=== PATIENT | female | born 1950 | race Caucasian/White ===

== ENCOUNTER 2016-09-06 16:52 | Observation (INO) | payer OTHER ==
[~2016-09-06] VITALS: Ht 172.7 cm; Wt 56.7 kg
[2016-09-06 18:03] LABS: Basophils # (auto) 0 uL; Basophils % (auto) 0.5 % (0.0-2.0); Eosinophils # (auto) 0.1 uL; Eosinophils % (auto) 1.6 % (0.0-7.0); Hematocrit 35.1 % (36.0-46.0); Hemoglobin 11.6 g/dL (12.2-16.2); Lymphocytes # (auto) 2.4 uL; Lymphocytes % (auto) 41.8 % (10.0-50.0); Mean Corpuscular Hemoglobin 30.4 pg (28.0-32.0); Mean Corpuscular Hgb Conc. 33.1 g/dL (32.0-36.0); Mean Corpuscular Volume 91.8 fL (80.0-100.0); Mean Platelet Volume 8.4 fL (7.4-10.4); Monocytes # (auto) 0.5 uL; Monocytes % (auto) 8.3 % (0.0-12.0); Neutrophils # (auto) 2.8 uL; Neutrophils % (auto) 47.8 % (37.0-80.0); Platelet Count (auto) 237 10^3/uL (140-450); Red Cell Distribution Width 13.9 % (11.6-16.0); White Blood Cell 5.8 10^3/uL (4.4-10.8)
[2016-09-06 18:07] LABS: Albumin 3.6 g/dL (3.4-5.0); BUN/Creatinine Ratio 29.8; Bilirubin, Total 0.3 mg/dL (0.2-1.0); Calcium 9.2 mg/dL (8.5-10.1); Potassium 3.8 mmol/L (3.5-5.1); Total Protein 6.7 g/dL (6.4-8.2)
[2016-09-06] MEDS ORDERED: SODIUM CHLORIDE 0.9% 1,000 ML IVB ONE (18:56)
[2016-09-06] MEDS ORDERED: ONDANSETRON HCL 4 MG/2 ML VIAL IV ONE (19:00)
[2016-09-06 19:16] LABS: Magnesium 2.2 mg/dL (1.6-2.6)
[2016-09-06 19:19] LABS: Urine Bilirubin Negative (Negative); Urine Blood Negative /uL (Negative); Urine Color Yellow (Yellow); Urine Glucose Normal (Normal); Urine Ketone Negative (Negative); Urine Nitrite Negative (Negative); Urine RBC None Seen /hpf (0 - 4); Urine Squamous Epithelial Cell FEW /hpf (<5); Urine Urobilinogen Normal (Negative)
[2016-09-06 19:23] LABS: INR 1.02 (0.9-1.15)
[2016-09-06] MEDS ORDERED: KETOROLAC TROMETH 30 MG/ML 1ML VIAL IV ONE (20:30)
[2016-09-06] MEDS ORDERED: HYDROcodone-ACET 5/325MG TAB PO ONE (22:00)
[2016-09-06] MEDS ORDERED: IOHEXOL 350 MG/ML 100ML IJ ONE (22:43)
[2016-09-07 00:40] VITALS: BP 147/77
== END 2016-09-07 01:06 | disposition short-term general hospital (02) | DRG 392 ==
LOC: ER 16:57 → OVERFLOW 18:58 → ER 09-07 01:06
PROVIDERS: ADMIT Family Medicine; ATTEND Family Medicine
DX: R10.84 Generalized abdominal pain (principal); F41.9 Anxiety disorder, unspecified; R11.2 Nausea with vomiting, unspecified; Z82.49 Family history of ischemic heart disease and other diseases of the circulatory system; Z83.3 Family history of diabetes mellitus; R63.4 Abnormal weight loss; R91.1 Solitary pulmonary nodule
CPT/HCPCS: 36415; 71010; 71260; 74176; 80053; 81001; 82150; 83690; 83735; 85025; 85610; 85730; 93005; 96361; 96374; 96375; 99281; G0378; J1885; J2405; J7030; Q9967

== ENCOUNTER 2016-12-14 06:51 | Inpatient (IN) | payer OTHER ==
[~2016-12-14] VITALS: Ht 172.7 cm; Wt 63.5 kg
[2016-12-14] MEDS ORDERED: SODIUM CHLORIDE 0.9% 500 ML IV ONE (07:12)
[2016-12-14] MEDS ORDERED: ONDANSETRON HCL 4 MG/2 ML VIAL IV ONE (07:15)
[2016-12-14 08:17] LABS: Basophils # (auto) 0 uL; Basophils % (auto) 0.4 % (0.0-2.0); CONDITION Y; Eosinophils # (auto) 0.1 uL; Eosinophils % (auto) 1.9 % (0.0-7.0); Hematocrit 36.7 % (36.0-46.0); Hemoglobin 12.6 g/dL (12.2-16.2); Lymphocytes # (auto) 1.9 uL; Lymphocytes % (auto) 37.4 % (10.0-50.0); Mean Corpuscular Hemoglobin 32.7 pg (28.0-32.0); Mean Corpuscular Hgb Conc. 34.5 g/dL (32.0-36.0); Mean Corpuscular Volume 94.7 fL (80.0-100.0); Mean Platelet Volume 8.4 fL (7.4-10.4); Monocytes # (auto) 0.4 uL; Neutrophils # (auto) 2.7 uL; Neutrophils % (auto) 52.3 % (37.0-80.0); Platelet Count (auto) 203 10^3/uL (140-450); Red Cell Distribution Width 13.1 % (11.6-16.0); White Blood Cell 5.2 10^3/uL (4.4-10.8)
[2016-12-14 08:29] LABS: INR 0.97 (0.9-1.15); Partial Thromboplastin Time 24.3 sec (22.64-33.71); Prothrombin Time 10.6 sec (9.37-12.3)
[2016-12-14 08:34] LABS: Albumin 3.5 g/dL (3.4-5.0); Anion Gap 8 (5-15); Blood Urea Nitrogen 15 mg/dL (7-18); Calcium 9.1 mg/dL (8.5-10.1); Carbon Dioxide 28 mmol/L (21-32); Chloride 108 mmol/L (98-107); Glucose 109 mg/dL (74-106); Magnesium 2.2 mg/dL (1.6-2.6); Potassium 3.8 mmol/L (3.5-5.1); Sodium 144 mmol/L (136-145)
[2016-12-14 08:36] LABS: Aspartate Aminotransferase 28 U/L (15-37); BUN/Creatinine Ratio 21.4; GFR African American 108 mL/min; GFR Non-African American 89 mL/min
[2016-12-14 08:44] LABS: Alkaline Phosphatase 71 U/L (45-117); Bilirubin, Total 0.4 mg/dL (0.2-1.0)
[2016-12-14] MEDS ORDERED: LORazepam 0.5 MG TAB PO PRN (09:15)
[2016-12-14] MEDS ORDERED: LACTULOSE 20Gm/30ML SOLN PO PRN (09:15)
[2016-12-14] MEDS ORDERED: ACETAMINOPHEN 500 MG TAB PO PRN (09:15)
[2016-12-14] MEDS ORDERED: HYDROcodone-ACET 5/325MG TAB PO PRN (09:15)
[2016-12-14] MEDS ORDERED: TEMAZEPAM 15 MG CAP PO PRN (09:15)
[2016-12-14] MEDS ORDERED: PROMETHAZINE HCL 25 MG/ML 1ML IV ONE (09:15)
[2016-12-14] MEDS ORDERED: NITROGLYCERIN 0.4 MG SL TAB SL PRN (09:15)
[2016-12-14] MEDS ORDERED: DEXTROSE (50%) 50ML SYRG IV PRN (09:15)
[2016-12-14] MEDS ORDERED: HYDROmorphone HCL 2 MG/ML VL IV ONE (09:15)
[2016-12-14 09:42] LABS: Cholesterol 259 mg/dL (< 200); HDL Cholesterol 65 mg/dL (40-59); LDL Cholesterol 168 mg/dL (< 100); Triglycerides 80 mg/dL (< 150)
[2016-12-14] MEDS: SODIUM CHLORIDE 0.9% 1,000 ML IV SCH ×2 (09:46→22:07)
[2016-12-14] MEDS: ASPirin 81 mg TAB PO SCH (10:14)
[2016-12-14] MEDS: PANTOPRAZOLE 40 MG TAB PO SCH (10:14)
[2016-12-14] MEDS: ENOXAPARIN SOD 40 MG/0.4 ML SYRINGE SC SCH (10:14)
[2016-12-14 10:20] LABS: Temperature: 23.3 C (20.0-25.0)
[2016-12-14 11:00] LABS: Urine RBC None Seen /hpf (0 - 4)
[2016-12-14 11:35] LABS: Urine Bilirubin Negative (Negative); Urine Blood Negative /uL (Negative); Urine Color Colorless (Yellow); Urine Glucose Normal (Normal); Urine Hyaline Cast FEW /lpf (0 - 2); Urine Ketone Negative (Negative); Urine Nitrite Negative (Negative); Urine Urobilinogen Normal (Negative); Urine pH 7.5 (5.0-8.0)
[2016-12-14] MEDS: ACCU-CHEK COMFORT CURVE STRIP VI SCH ×2 (11:59→17:44)
[2016-12-14] MEDS: PROMETHAZINE HCL 25 MG/ML 1ML IV PRN ×3 (13:03→22:07)
[2016-12-14] MEDS: HYDROmorphone HCL 2 MG/ML VL IV PRN ×3 (13:04→22:08)
[2016-12-14] MEDS ORDERED: hydrALAZINE HCL 20 MG/ML VL IV PRN (19:00)
[2016-12-14 21:30] VITALS: BP 85/48
[2016-12-14 22:00] VITALS: BP_SYST 105; BP_SYST 85; BP_DIAS 48; BP_DIAS 68
[2016-12-14] MEDS ORDERED: ATORVASTATIN 20 MG TAB PO SCH (22:00)
[2016-12-14 22:37] VITALS: BP 144/70
[2016-12-15] MEDS: PROMETHAZINE HCL 25 MG/ML 1ML IV PRN ×3 (02:53→14:31)
[2016-12-15] MEDS: HYDROmorphone HCL 2 MG/ML VL IV PRN ×3 (02:53→14:30)
[2016-12-15 05:30] VITALS: BP 134/66
[2016-12-15] MEDS: ACCU-CHEK COMFORT CURVE STRIP VI SCH ×4 (05:47→17:36)
[2016-12-15 06:17] LABS: Basophils # (auto) 0 uL; Basophils % (auto) 0.5 % (0.0-2.0); CONDITION Y; Eosinophils # (auto) 0.1 uL; Eosinophils % (auto) 2.2 % (0.0-7.0); Hematocrit 34.8 % (36.0-46.0); Hemoglobin 11.8 g/dL (12.2-16.2); Lymphocytes # (auto) 1.8 uL; Lymphocytes % (auto) 28.1 % (10.0-50.0); Mean Corpuscular Hemoglobin 32.7 pg (28.0-32.0); Mean Corpuscular Hgb Conc. 33.9 g/dL (32.0-36.0); Mean Corpuscular Volume 96.4 fL (80.0-100.0); Mean Platelet Volume 8.8 fL (7.4-10.4); Monocytes # (auto) 0.5 uL; Monocytes % (auto) 7.1 % (0.0-12.0); Neutrophils % (auto) 62.1 % (37.0-80.0); Platelet Count (auto) 171 10^3/uL (140-450); Red Cell Distribution Width 12.8 % (11.6-16.0); White Blood Cell 6.4 10^3/uL (4.4-10.8)
[2016-12-15 06:48] LABS: Albumin 3.3 g/dL (3.4-5.0); Bilirubin, Total 0.6 mg/dL (0.2-1.0); Calcium 9.1 mg/dL (8.5-10.1); Potassium 3.6 mmol/L (3.5-5.1); Total Protein 6.5 g/dL (6.4-8.2)
[2016-12-15 09:00] VITALS: BP 146/46
[2016-12-15] MEDS: ENOXAPARIN SOD 40 MG/0.4 ML SYRINGE SC SCH (10:00)
[2016-12-15] MEDS: ASPirin 81 mg TAB PO SCH (10:40)
[2016-12-15] MEDS: PANTOPRAZOLE 40 MG TAB PO SCH (10:40)
[2016-12-15] MEDS: SODIUM CHLORIDE 0.9% 1,000 ML IV SCH (10:41)
[2016-12-15 13:00] VITALS: BP 126/56
[2016-12-15] MEDS ORDERED: IOHEXOL 350 MG/ML 100ML IJ ONE (15:30)
[2016-12-15 17:00] VITALS: BP 125/62
[2016-12-15 18:02] VITALS: BP 125/62
== END 2016-12-15 19:20 | disposition home or self-care (01) | DRG 605 ==
LOC: EDBD 06:51 → ER 06:51 → TELE 06:52 → TELE-E-ADS 14:35 → TELE-WESTW 17:22
PROVIDERS: ADMIT Internal Medicine; ATTEND Internal Medicine
DX: S80.01XA Contusion of right knee, initial encounter (principal); S09.90XA Unspecified injury of head, initial encounter; R55 Syncope and collapse; W19.XXXA Unspecified fall, initial encounter; F41.9 Anxiety disorder, unspecified; J06.9 Acute upper respiratory infection, unspecified; M54.5 Low back pain; E78.5 Hyperlipidemia, unspecified; M19.90 Unspecified osteoarthritis, unspecified site; Y93.89 Activity, other specified; Y92.89 Other specified places as the place of occurrence of the external cause; Z82.49 Family history of ischemic heart disease and other diseases of the circulatory system; Z83.3 Family history of diabetes mellitus; Z90.49 Acquired absence of other specified parts of digestive tract; Z90.710 Acquired absence of both cervix and uterus; Z88.8 Allergy status to other drugs, medicaments and biological substances; Z88.5 Allergy status to narcotic agent; Z88.0 Allergy status to penicillin
CPT/HCPCS: 36415; 70450; 71010; 71275; 72100; 73562; 73700; 80053; 80061; 80307; 81001; 82550; 82607; 82746; 82962; 83036; 83735; 84443; 84484; 85025; 85379; 85610; 85652; 85730; 93005; 93306; 93886; 94761; 96361; 96374; 96375; J2405

== ENCOUNTER 2016-12-17 13:00 | Emergency (ER) | payer OTHER ==
[~2016-12-17] VITALS: Ht 172.7 cm; Wt 59.0 kg
[2016-12-17] MEDS ORDERED: ACETAMINOPHEN 325 MG TAB PO ONE (15:45)
[2016-12-17 18:53] VITALS: BP 135/93
[2016-12-17] MEDS ORDERED: HYDROcodone-ACET 5/325MG TAB PO ONE (19:00)
== END 2016-12-17 20:40 | disposition home or self-care (01) ==
LOC: EDBD 13:00 → ER 13:00
DX: G44.209 Tension-type headache, unspecified, not intractable (principal); M47.22 Other spondylosis with radiculopathy, cervical region; M79.7 Fibromyalgia; Z90.49 Acquired absence of other specified parts of digestive tract; Z90.710 Acquired absence of both cervix and uterus; Z90.89 Acquired absence of other organs
CPT/HCPCS: 70450; 72125; 93005

== ENCOUNTER 2017-02-08 17:23 | Emergency (ER) | payer OTHER ==
[~2017-02-08] VITALS: Ht 175.3 cm; Wt 63.5 kg
[2017-02-08] MEDS ORDERED: KETOROLAC TROMETH 30 MG/ML 1ML VIAL IV ONE (19:00)
[2017-02-08] MEDS ORDERED: CYCLOBENZAPRINE HCL 10 MG TAB PO ONE (19:00)
[2017-02-08] MEDS ORDERED: HYDROcodone-ACET 10/325MG TAB PO ONE (19:00)
[2017-02-08] MEDS ORDERED: PROMETHAZINE HCL 25 MG/ML 1ML IV ONE (19:15)
[2017-02-08 20:17] VITALS: BP 178/99
== END 2017-02-08 20:17 | disposition home or self-care (01) ==
LOC: ER 17:31
DX: M54.6 Pain in thoracic spine (principal); Z90.49 Acquired absence of other specified parts of digestive tract; Z90.710 Acquired absence of both cervix and uterus; Z88.6 Allergy status to analgesic agent; Z88.0 Allergy status to penicillin
CPT/HCPCS: 72070; 93005; 96374; 99284; J2550; J1885

== ENCOUNTER 2018-04-02 18:32 | Emergency (ER) | payer OTHER ==
[~2018-04-02] VITALS: Ht 175.3 cm; Wt 73.9 kg
[2018-04-02 18:57] VITALS: BP 164/71
== END 2018-04-02 20:19 | disposition home or self-care (01) ==
LOC: ER 18:32
DX: G89.29 Other chronic pain (principal); M54.2 Cervicalgia; Z90.49 Acquired absence of other specified parts of digestive tract; Z90.710 Acquired absence of both cervix and uterus; Z90.89 Acquired absence of other organs; Z88.6 Allergy status to analgesic agent; Z88.0 Allergy status to penicillin; Z88.8 Allergy status to other drugs, medicaments and biological substances

== ENCOUNTER 2018-04-30 07:15 | Emergency (ER) | payer OTHER ==
[~2018-04-30] VITALS: Ht 175.3 cm; Wt 74.8 kg
[2018-04-30 07:40] VITALS: BP 106/59
[2018-04-30] MEDS ORDERED: DEXAMETHASONE SOD PHOS 10MG/1ML VIAL INJ IM ONE (08:15)
== END 2018-04-30 08:24 | disposition home or self-care (01) ==
LOC: ER 07:15
DX: S33.5XXA Sprain of ligaments of lumbar spine, initial encounter (principal); Z90.49 Acquired absence of other specified parts of digestive tract; Z90.710 Acquired absence of both cervix and uterus; Z90.89 Acquired absence of other organs; Z88.0 Allergy status to penicillin; Z88.6 Allergy status to analgesic agent; X58.XXXA Exposure to other specified factors, initial encounter; Y93.89 Activity, other specified; Y99.8 Other external cause status; Y92.89 Other specified places as the place of occurrence of the external cause
CPT/HCPCS: 99283; J1100

== ENCOUNTER 2023-06-02 20:27 | Emergency (ER) | payer OTHER ==
[~2023-06-02] VITALS: Ht 172.7 cm; Wt 90.4 kg
[2023-06-02] MEDS ORDERED: PERCOT PO (21:22)
[2023-06-02 21:43] VITALS: BP 139/82; PULSE 112; RESP 19; TEMP 98.1; O2SAT 96
== END 2023-06-02 21:45 | disposition home or self-care (01) ==
LOC: ER 20:27
DX: G89.18 Other acute postprocedural pain (principal); M54.2 Cervicalgia; M54.6 Pain in thoracic spine; F41.9 Anxiety disorder, unspecified; Z98.890 Other specified postprocedural states; Z88.8 Allergy status to other drugs, medicaments and biological substances

== ENCOUNTER 2023-06-06 16:35 | Emergency (ER) | payer OTHER ==
[~2023-06-06] VITALS: Ht 172.7 cm; Wt 90.9 kg
[~2023-06-06 16:35] MED LIST: PERCOT PO
[2023-06-06 17:12] VITALS: BP 138/67; PULSE 95; RESP 16; TEMP 97.7
[2023-06-06] MEDS: HYDROcodone-ACET 10/325MG TAB PO ONE (20:51)
[2023-06-06 20:54] VITALS: O2SAT 97
== END 2023-06-06 21:07 | disposition home or self-care (01) ==
LOC: ER 16:35
DX: G89.18 Other acute postprocedural pain (principal); M54.2 Cervicalgia; M54.6 Pain in thoracic spine; F41.9 Anxiety disorder, unspecified; Z98.890 Other specified postprocedural states; Z88.8 Allergy status to other drugs, medicaments and biological substances; Z79.899 Other long term (current) drug therapy

== ENCOUNTER 2023-06-07 23:18 | Emergency (ER) | payer OTHER ==
[~2023-06-07] VITALS: Ht 175.3 cm; Wt 91.1 kg
[2023-06-07 23:34] VITALS: BP 177/79; PULSE 104; RESP 16; TEMP 98.4
[2023-06-08] MEDS ORDERED: PERCOT PO (00:19)
[2023-06-08 01:56] VITALS: O2SAT 95
== END 2023-06-08 01:56 | disposition home or self-care (01) ==
LOC: ER 23:18
DX: M54.2 Cervicalgia (principal); G89.29 Other chronic pain; I10 Essential (primary) hypertension; F41.9 Anxiety disorder, unspecified; Z76.0 Encounter for issue of repeat prescription; Z98.890 Other specified postprocedural states; Z88.8 Allergy status to other drugs, medicaments and biological substances; Z79.899 Other long term (current) drug therapy

== ENCOUNTER 2023-06-26 15:24 | Emergency (ER) | payer OTHER ==
[~2023-06-26] VITALS: Ht 172.7 cm; Wt 89.7 kg
[2023-06-26 15:24] VITALS: BP 153/83; PULSE 102; RESP 16; O2SAT 95
[2023-06-26] MEDS ORDERED: HYDR-4798 PO (18:59)
[2023-06-26] MEDS ORDERED: PERCOT PO (19:16)
== END 2023-06-26 19:00 | disposition home or self-care (01) ==
LOC: ER 15:24
DX: G89.18 Other acute postprocedural pain (principal); M54.2 Cervicalgia; I10 Essential (primary) hypertension; F41.9 Anxiety disorder, unspecified; Z76.0 Encounter for issue of repeat prescription; Z98.890 Other specified postprocedural states; Z88.8 Allergy status to other drugs, medicaments and biological substances; Z79.899 Other long term (current) drug therapy

== ENCOUNTER 2023-07-02 12:07 | Emergency (ER) | payer OTHER ==
[~2023-07-02] VITALS: Ht 177.8 cm; Wt 80.0 kg
[2023-07-02 16:24] VITALS: TEMP 97.8; O2SAT 96
[2023-07-02] MEDS ORDERED: OXYC-963 PO (17:01)
[2023-07-02 17:11] VITALS: BP 157/82; PULSE 95; RESP 18
[2023-07-02] MEDS: HYDROmorphone HCL 2 MG/ML VL/or syr IM ONE (17:11)
== END 2023-07-02 17:28 | disposition home or self-care (01) ==
LOC: ER 12:07
DX: G89.29 Other chronic pain (principal); M54.2 Cervicalgia; I10 Essential (primary) hypertension; Z90.49 Acquired absence of other specified parts of digestive tract; Z90.710 Acquired absence of both cervix and uterus; Z90.89 Acquired absence of other organs; Z79.899 Other long term (current) drug therapy; Z88.0 Allergy status to penicillin; Z88.5 Allergy status to narcotic agent; Z88.8 Allergy status to other drugs, medicaments and biological substances
CPT/HCPCS: 96372; 99283; J1170

== ENCOUNTER 2023-08-14 01:13 | Emergency (ER) | payer OTHER ==
[~2023-08-14] VITALS: Ht 175.3 cm; Wt 90.0 kg
[2023-08-14 01:30] VITALS: O2SAT 95
[2023-08-14 03:12] VITALS: BP 118/72; PULSE 92; RESP 20
[2023-08-14] MEDS: HYDROmorphone HCL 2 MG/ML VL/or syr IM ONE (03:12)
== END 2023-08-14 03:12 | disposition home or self-care (01) ==
LOC: ER 01:13
DX: M54.6 Pain in thoracic spine (principal); M62.830 Muscle spasm of back; G89.29 Other chronic pain; I10 Essential (primary) hypertension; Z90.49 Acquired absence of other specified parts of digestive tract; Z90.710 Acquired absence of both cervix and uterus; Z88.0 Allergy status to penicillin; Z88.6 Allergy status to analgesic agent
CPT/HCPCS: 96372; 99283; J1170